=== PATIENT | male | born 1965 | race African-American/Black ===

== ENCOUNTER 2017-08-22 04:59 | Day surgery (SDC) | payer OTHER ==
[~2017-08-22] VITALS: Ht 177.8 cm; Wt 111.5 kg
--- NOTE | ~2017-08-22 | HP ---
PATIENT: LUC SINGH MEDICAL RECORD: [id number] ACCOUNT: [id number] LOCATION:[address] : 67 ADMISSION DATE: 08/22/17 HISTORY AND PHYSICAL EXAMINATION CHIEF COMPLAINT: "I am here for a graft." [facility]. He has had a failed fistula procedure in the past. He is here for left upper extremity arteriovenous graft versus fistula. The risks, possible complications, and alternatives to the procedure were explained to the patient. A written history and physical is on the chart. TRANSINT:[id number] Voice Confirmation ID: [id number] DOCUMENT ID: [id number] LOLITA BARGER MD CC: [id number] DICTATION DATE: 08/22/17 1213 HOT TAR ROOFER HELPER: 08/22/17 1237 REG [facility] [address] [place] [address]
--- NOTE | ~2017-08-22 | OP ---
PATIENT NAME: LUC SINGH MEDICAL RECORD: [id number] :67 LOCATION:D.M2 D.2140 ADMISSION DATE: SURGEON: LOLITA BARGER MD DATE OF OPERATION: 08/22/2017 PREOPERATIVE DIAGNOSIS: End-stage renal disease without chronic access for hemodialysis. POSTOPERATIVE DIAGNOSIS: End-stage renal disease without chronic access for hemodialysis. PROCEDURE: Placement of a 6 mm PTFE graft from the left brachial artery to the left cephalic vein. SURGEON: Lolita Barger MD WHIPPER BEATER: None. BLOOD LOSS: 300 cc. ANESTHESIA: General. COMPLICATIONS: None. The risks, possible complications and alternatives to procedure were explained to the patient. He elects to proceed. OPERATIVE COURSE: The patient was conveyed to the operating room electively on 08/22/2017. General anesthesia was induced by the anesthesia staff. The left upper extremity was sterilely prepped and draped and abducted at 90 degrees to the patient's trunk. I interrogated the left upper extremity with hand-held ultrasound. It revealed a fairly generous cephalic vein in the mid arm as well as in the upper arm; however, a minute cephalic vein in the distal arm just above the cubital fossa. An axial incision was accomplished on the medial aspect of the arm. I dissected down to the brachial artery. Some venous structures were ligated doubly and divided between ligatures. There were paired brachial veins. One of these veins was ligated doubly and divided between the ligatures. This was to allow for easier access to the brachial artery, which was encircled with vessel loops. An axial incision was then accomplished over the cephalic vein. I dissected down to cephalic vein, which was encircled with vessel loops. I then created a tunnel between the 2 incisions. I tunneled a 6 mm PTFE graft and ensured that there was no kinking or twisting of the graft during the tunneling process. Control was obtained with vessel loops on the artery. This was after intravenous heparin had been given. An axial arteriotomy was accomplished. I then punched out some ovals in the artery with an aortic punch. A side-to-end arterial to graft anastomosis was then fashioned with a running 6-0 Prolene. I then flushed out through the graft. Rosalina was added to the anastomosis for additional hemostasis. I then bevelled the venous end of the graft. An axial venotomy was OPERATIVE REPORT [id number] LUC SINGH. An end-to-side graft to venous anastomosis was then fashioned with a running 6-0 Prolene. I then released control on the artery and on the vein. There was a good thrill within the vein. We then began to close both incisions. The closure consisted of interrupted 3-0 Vicryl for the deep dermis as well as running intracuticular 3-0 Vicryl for the skin. At this time, I could not Doppler any signal through the graft. I opened up the incision over the cephalic vein. I gained control on the graft as well as the vessels with vascular clamps. I then performed a transverse graftotomy. I was planning to perform a catheter thrombectomy. There was a prompt flow of blood out of the graft. This was under pressure. I really cannot determine why this could not be heard by the hand held Doppler. I did perform one pass with a #4 Neela catheter and there was no clotted blood. I then regained control with vascular clamps. The graftotomy was closed with a single horizontal mattress 6-0 Prolene suture. The skin at this site was then closed with a running intracuticular 3-0 Vicryl. Sterile dressings were applied. The patient was then extubated and conveyed to post-anesthesia care unit where he was in stable condition. He will be kept in the hospital overnight to observe for bleeding. TRANSINT:[id number] Voice Confirmation ID: [id number] DOCUMENT ID: [id number] LOLITA BARGER MD CC: [id number] DICTATION DATE: 08/22/17 1218 ANAESTHESIOLOGIST: 08/22/17 1241 REG [address] [address] [id number] [place] [address]
[2017-08-22] MEDS ORDERED: ZYLOPRIM100 MG PO (05:19)
[2017-08-22] MEDS ORDERED: NORVASC10 MG PO (05:19)
[2017-08-22] MEDS ORDERED: CATAPRES0.1 MG PO (05:22)
[2017-08-22] MEDS ORDERED: CYMBALTA20 MG PO (05:22)
[2017-08-22] MEDS ORDERED: FUROSEMIDE40 MG PO (05:23)
[2017-08-22] MEDS ORDERED: PROSCAR5 MG PO (05:23)
[2017-08-22] MEDS ORDERED: NEURONTIN600 MG PO (05:23)
[2017-08-22] MEDS ORDERED: HUMULIN 70100 UNIT/1 SC (05:24)
[2017-08-22] MEDS ORDERED: PRAVACHOL20 MG (05:25)
[2017-08-22] MEDS ORDERED: FLOMAX0.4 MG PO (05:25)
[2017-08-22] MEDS ORDERED: HUMULIN R100 U/ML SC (05:25)
[2017-08-22 06:57] VITALS: BP 152/77; BMI 34.5
[2017-08-22 07:27] LABS: ALBUMIN 3.5 g/dL (3.4-5.0); ANION GAP 16.3 mmol/L (8-16); BILIRUBIN - TOTAL 0.33 mg/dL (0.2-1.3); CALCIUM 9.2 mg/dL (8.5-10.1); CARBON DIOXIDE 23.9 mmol/L (21.0-32.0); POTASSIUM - SERUM 4.2 mmol/L (3.5-5.1)
[2017-08-22 08:43] LABS: BASOPHILS 0.2 % (0-2); EOSINOPHILS 7.9 % (0-7); HEMATOCRIT 33.7 % (42.0-54.0); HEMOGLOBIN 11.6 g/dL (13.5-17.5); IMMATURE GRANULOCYTES 0.5 % (0-5); LYMPHOCYTES 20.7 % (15-50); MCH 28.8 pg (26.0-34.0); MCHC 34.4 g/dL (31.0-37.0); MCV 83.6 fL (80.0-100.0); MEAN PLATELET VOLUME 10.4 fL (7.4-10.4); MONOCYTES 5.5 % (2-11); NEUTROPHILS 65.2 % (40-80); PLATELET COUNT 174 10x3/uL (130-400); RBC 4.03 10x6/uL (4.20-6.10); RDW 15.2 % (11.5-14.5); WBC 8.2 10x3/uL (4.8-10.8)
[2017-08-22 12:12] VITALS: BP 156/79; BMI 30.1
[2017-08-22 15:07] VITALS: BP 160/72
[2017-08-22 16:01] VITALS: Ht 177.8 cm; Wt 111.5 kg
[2017-08-22 20:54] VITALS: BP 139/87
[2017-08-23 00:53] VITALS: BP 165/84
[2017-08-23 04:47] VITALS: BP 152/85
[2017-08-23 08:10] VITALS: BP 168/78
[2017-08-23 15:34] VITALS: BP 173/69
[2017-08-23 19:00] VITALS: BP 156/77
[2017-08-24] VITALS: BP 172/85
[2017-08-24 04:00] VITALS: BP 142/73
[2017-08-24 08:24] VITALS: BP 159/81
[2017-08-24 11:36] VITALS: BP 152/80
== END 2017-08-24 14:20 | disposition home or self-care (01) ==
LOC: D.SDCHOLD 04:59 → D.OPS 04:59 → D.M2 11:54 → D.OPS 08-24 14:20
PROVIDERS: Anesthesiology
DX: E11.22 Type 2 diabetes mellitus with diabetic chronic kidney disease (principal); I12.0 Hypertensive chronic kidney disease with stage 5 chronic kidney disease or end stage renal disease; Z87.891 Personal history of nicotine dependence; Z99.2 Dependence on renal dialysis; Z79.4 Long term (current) use of insulin; Z79.899 Other long term (current) drug therapy; Z88.6 Allergy status to analgesic agent; Z01.812 Encounter for preprocedural laboratory examination

== ENCOUNTER 2018-12-16 15:35 | Inpatient (IN) | payer MEDICAID ==
[~2018-12-16] VITALS: Ht 182.9 cm; Wt 100.1 kg
[2018-12-16] VITALS (19 sets, daily range): BP systolic 84–218; BP diastolic 32–158
[~2018-12-16 15:35] MED LIST: CATAPRES0.1 MG PO; CYMBALTA20 MG PO; FLOMAX0.4 MG PO; FUROSEMIDE40 MG PO; HUMULIN 70100 UNIT/1 SC; HUMULIN R100 U/ML SC; NEURONTIN600 MG PO; NORVASC10 MG PO; PRAVACHOL20 MG; PROSCAR5 MG PO; ZYLOPRIM100 MG PO
--- NOTE | 2018-12-16 16:21 | NUR ---
FSBS= 383 MG/DL DR WILSON NOTIFIED
--- NOTE | 2018-12-16 16:36 | NUR ---
NO RESPONSE AFTER RAMAZICON, DR WILSON NOTIFIED PREPARE FOR INTUBATION
[2018-12-16 16:38] LABS: APTT 28.5 SECONDS (22.8-39.4); INR 1.14 (0.85-1.17); PROTIME 14.1 SECONDS (11.6-15.0)
[2018-12-16 16:41] LABS: BASOPHILS 0.1 % (0-2); EOSINOPHILS 0.1 % (0-7); HEMATOCRIT 38.8 % (42.0-54.0); HEMOGLOBIN 14.1 g/dL (13.5-17.5); IMMATURE GRANULOCYTES 0.2 % (0-5); LYMPHOCYTES 7.8 % (15-50); MCH 29.7 pg (26.0-34.0); MCHC 36.3 g/dL (31.0-37.0); MCV 81.9 fL (80.0-100.0); MEAN PLATELET VOLUME 10.9 fL (7.4-10.4); MONOCYTES 2.7 % (2-11); NEUTROPHILS 89.1 % (40-80); PLATELET COUNT 134 10x3/uL (130-400); RBC 4.74 10x6/uL (4.20-6.10); RDW 14.7 % (11.5-14.5); WBC 8.2 10x3/uL (4.8-10.8)
--- NOTE | 2018-12-16 16:45 | NUR ---
RT AT DRAWING ABG'S
--- NOTE | 2018-12-16 16:49 | NUR ---
DR WILSON AT [facility] FOR INTUBATION. 1648: ETOMIDATE 20 MG AND SUCCINYCHOLINE 100MG IVP 1656: REPEAT MEDS ETOMIDATE 20MG AND SUCC 100MG IVP 1658: INTUBATED WITH 7.5 FR 29 @ THE LIP. POSITIVE ETCO2 COLOR CHANGE AND AUSCULTATION. VSS VENT SETTINGS: TV 500 PEEP 5 FIO2 100%
[2018-12-16 16:58] LABS: ALBUMIN 3.5 g/dL (3.4-5.0); ALKALINE PHOSPHATASE 104 U/L (46-116); ALT (SGPT) 15 U/L (10-68); BILIRUBIN - TOTAL 0.36 mg/dL (0.2-1.3); CALC OSMOLALITY 302 mosm/kg (275-300); CALCIUM 8.5 mg/dL (8.5-10.1); CARBON DIOXIDE 20.1 mmol/L (21.0-32.0); CHLORIDE - SERUM 100 mmol/L (98-107); CKMB 1.6 U/L (0.0-3.6); CREATINE KINASE 164 UL (21-232); CREATININE - SERUM 13.1 mg/dL (0.6-1.3); MAGNESIUM - SERUM 2.4 mg/dL (1.8-2.4); POTASSIUM - SERUM 5.8 mmol/L (3.5-5.1); PROTEIN - SERUM 7.4 g/dL (6.4-8.2); SODIUM 135 mmol/L (136-145); THYROID STIMULATING HORMONE 1.66 uIU/mL (0.36-3.74); TROPONIN-I 0.017 ng/mL (0.000-0.060); UREA NITROGEN 55 mg/dL (7-18); eGFR NON AFRICAN AMERICAN 4 mL/min (90-120)
[2018-12-16 17:05] LABS: GLUCOSE 430 mg/dL (74-106)
--- NOTE | 2018-12-16 17:30 | NUR ---
propofol gtt increased to 20 mcg
--- NOTE | 2018-12-16 17:39 | NUR ---
BP ELEVATED NIPRIDE GTT INITIATED @ 10ML/HR
--- NOTE | 2018-12-16 17:50 | NUR ---
BP 84/[address] KATIE BLACKWELLFIED
--- NOTE | 2018-12-16 18:01 | NUR ---
BP 137/77 NIPRIDE GTT STOPPED
--- NOTE | 2018-12-16 18:07 | MORECARE ---
CASE MANAGEMENT DISCHARGE SUMMARY PATIENT: LUC SINGH UNIT: [id number] ADM DATE: 12/16/18 AGE: 53 : 67 SEX: M ROOM/BED: D.2303 AUTHOR: HARPER CORMIER PHYSICIAN: REFERRING PHYSICIAN: HOWARD VELEZ MD DATE OF SERVICE: 12/16/18 Discharge Plan Patient Name: LUC SINGH [facility] : 1965 Planned Disposition: Anticipated Discharge Date: Discharge Date: Expected LOS: Initial Reviewer: [email or web address] Initial Review Date: 12/16/2018 Generated: 12/16/18 7:06 pm Patient Name: LUC SINGH Page 43979 at 1807 All edits/amendments must be made on the electronic document DICTATION DATE: 12/16/181805 CARDBOARD CUTTER: ABIMAEL 12/16/181805 RPT#: [id number] DC DATE: STATUS: ADM IN [facility] [address] [place] [address] END OF REPORT
--- NOTE | 2018-12-16 18:13 | NUR ---
NGT ADVANCED 2-[address] WILSON
--- NOTE | 2018-12-16 18:26 | NUR ---
REPORT CALLED TO DEBORA GUTIERREZ BY SBAR FORMAT
--- NOTE | 2018-12-16 18:34 | NUR ---
NIPRIDE GTT RE STARTED @ 0.25 MCG/KG/MIN (3.8 ML/HR)
--- NOTE | 2018-12-16 18:45 | NUR ---
TRANSPORTED TO ICU#2303 VIA STRETCHER WITH RT. PROPOFOL GTT INFUSING UPON TX TO UNIT. CONDITION STABLE.
--- NOTE | 2018-12-16 19:10 | NUR ---
PT RECEIVED FROM ER VIA STRETCHER, TRANSFERRED TO ICU BED. WITH ER STAFF AND RT. PT CONNECTED TO VENT AND MONITOR. SEDATED. SOFT WRIST RESTRAINS TO BILATERAL WRIST DUE TO PULLING AT LINES AND TUBES WITH ORDERS RECEIVED. WILL CONTINUE TO OBSERVE.
--- NOTE | 2018-12-16 19:10 | NUR ---
PT RECEIVED FROM ER ON STRETCHER WITH NURSE AND RT. PT TRANSFERRED TO ICU BED AND CONNECTED TO VENT AND MONITOR. PT WITH BEARD WITH CLEAR URINE. ORDERS RECEIVED FOR ABG AND DIPROVAN. WILL CONTINUE TO OBSERVE.
[2018-12-16 21:27] LABS: ANION GAP 29.9 mmol/L (8-16); CALCIUM 8.3 mg/dL (8.5-10.1); CREATININE - SERUM 13.6 mg/dL (0.6-1.3); POTASSIUM - SERUM 5.7 mmol/L (3.5-5.1)
[2018-12-16 21:38] LABS: CARBON DIOXIDE 13.8 mmol/L (21.0-32.0)
--- NOTE | 2018-12-16 21:50 | NUR ---
PT TO IMAGING FOR HEAD CT WITH NURSE, RT, AND E LEARNING DESIGNER. TRANSFERRED TO CT, RT USES AMBU BAG DURING PROCEDURE WITH PRECAUTIONS TAKEN. PT MOVED SOME AT FIRST AND CALMED DOWN. TRANSFERRED BACK TO BED AND RETURNED TO ROOM. PT TOLERATED WELL. NO CONCERNS NOTE AT THIS TIME.
[2018-12-16 23:10] LABS: CKMB 2.9 U/L (0.0-3.6)
[2018-12-16 23:27] LABS: CREATINE KINASE 296 UL (21-232)
[2018-12-16 23:28] LABS: TROPONIN-I 0.138 ng/mL (0.000-0.060)
--- NOTE | 2018-12-16 23:45 | NUR ---
REASSESSMENT COMPLETED, SEE FLOW SHEET. TITRATING FROM SEDATION, SEE FLOW SHEET. WILL CONTINUE TO OBSERVE
[2018-12-17] VITALS (70 sets, daily range): BP systolic 92–212; BP diastolic 46–112; Ht 182.9 cm; Wt 100.1 kg
--- NOTE | 2018-12-17 01:25 | NUR ---
PT CONTINUES VENT NO SEDATION NOTED. VENT ON CPAP. TOLERATING WELL.
--- NOTE | 2018-12-17 01:30 | NUR ---
CONTINUES VENT, OFF SEDATION, ROUSES AT TIMES, ATTEMPTING TO PULL LINES/TUBES. DOES NOT OPEN EYES, OR FOLLOW COMMANDS. WILL CONTINUE TO OBSERVE.
--- NOTE | 2018-12-17 03:30 | NUR ---
REASSESSMENT COMPLETED, SEE FLOW SHEET. CONTINUES VENT WITHOUT SEDATION. NO RESPONSE TO STIMULI.
[2018-12-17 04:32] LABS: BASOPHILS 0.1 % (0-2); EOSINOPHILS 2.3 % (0-7); HEMATOCRIT 38.1 % (42.0-54.0); IMMATURE GRANULOCYTES 0.4 % (0-5); LYMPHOCYTES 10.9 % (15-50); MCH 29.5 pg (26.0-34.0); MCHC 36.7 g/dL (31.0-37.0); MCV 80.4 fL (80.0-100.0); MEAN PLATELET VOLUME 10.8 fL (7.4-10.4); MONOCYTES 6.8 % (2-11); NEUTROPHILS 79.5 % (40-80); PLATELET COUNT 145 10x3/uL (130-400); RBC 4.74 10x6/uL (4.20-6.10); RDW 14.6 % (11.5-14.5); WBC 7.3 10x3/uL (4.8-10.8)
[2018-12-17 05:08] LABS: ALBUMIN 3.3 g/dL (3.4-5.0); ALKALINE PHOSPHATASE 93 U/L (46-116); ALT (SGPT) 16 U/L (10-68); BILIRUBIN - TOTAL 0.38 mg/dL (0.2-1.3); CALC OSMOLALITY 309 mosm/kg (275-300); CALCIUM 8.7 mg/dL (8.5-10.1); CARBON DIOXIDE 24.4 mmol/L (21.0-32.0); CHLORIDE - SERUM 104 mmol/L (98-107); CKMB 2.7 U/L (0.0-3.6); CREATINE KINASE 335 UL (21-232); CREATININE - SERUM 14.1 mg/dL (0.6-1.3); GLUCOSE 175 mg/dL (74-106); MAGNESIUM - SERUM 2.4 mg/dL (1.8-2.4); PHOSPHOROUS 5.9 mg/dL (2.5-4.9); POTASSIUM - SERUM 3.9 mmol/L (3.5-5.1); PROTEIN - SERUM 6.6 g/dL (6.4-8.2); SODIUM 145 mmol/L (136-145); TROPONIN-I 0.153 ng/mL (0.000-0.060); UREA NITROGEN 61 mg/dL (7-18); eGFR NON AFRICAN AMERICAN 4 mL/min (90-120)
[2018-12-17] MEDS ORDERED: NEURONTIN 300300 MG PO (05:29)
[2018-12-17] MEDS ORDERED: ELIQUIS5 MG PO (05:39)
[2018-12-17] MEDS ORDERED: PHOSLO667 MG PO (05:42)
[2018-12-17] MEDS ORDERED: COLACE100 MG PO (05:44)
--- NOTE | 2018-12-17 06:36 | NUR ---
UNABLE TO COMPLETE SUICIDE ASSESSMENT DUE TO BEING INTUBATED.
--- NOTE | 2018-12-17 07:48 | NUR ---
NO RESPONSE AT ALL TO STERNAL RUB. ETT SECURE TO VENT BILATERAL LUNG SOUNDS EQUAL NO DISTRESS. LEFT SUBCLAVIAN TRIALYSIS CATH CLAMPED. DRESSING DRY AND INTACT. NG TO LOW INTERMITTENT SUCTION. BEARD CATH WITHOUT URINE IN BAG. MONITOR SR. NO DISTRESS.
--- NOTE | 2018-12-17 07:58 | NUR ---
WHEN REPOSITIONING PATIENT HE BENT RIGHT KNEE AND MOVED BOTH ARMS. DID NOT OBEY EYES OR OBEY ANY COMMANDS. DID NOT GRIMACE TO STERNAL RUB
--- NOTE | 2018-12-17 10:00 | NUR ---
DIALYSIS NURSE SETTING UP FOR DIALYSIS. NO CHANGE IN PATIENT. NO SEDATION
--- NOTE | 2018-12-17 10:00 | NUR ---
DR. VELEZ HERE PATIENT WAKING UP MORE AND MOVING ALL EXTREMITITES LIFTING HEAD OFF BED, BUT NOT OPENING EYES
--- NOTE | 2018-12-17 10:13 | NUR ---
PATIENT UNRESPONSIVE UNABLE TO DO SRS. PATIENT ON VENTILATOR WILL REEVAL LATER
--- NOTE | 2018-12-17 10:20 | NUR ---
DIALYSIS NURSE HAVING PROBLEMS WITH TRIALYSIS CATH. ORDERED ACTIVASE TO BE GIVEN BY DIALYSIS NURSE
[2018-12-17 10:40] LABS: UDS - AMPHET NEGATIVE QUAL (NEGATIVE); UDS - BARB NEGATIVE QUAL (NEGATIVE); UDS - BENZO NEGATIVE QUAL (NEGATIVE); UDS - COCAINE NEGATIVE QUAL (NEGATIVE); UDS - OPIATE NEGATIVE QUAL (NEGATIVE); UDS - PCP NEGATIVE QUAL (NEGATIVE); UDS - THC NEGATIVE QUAL (NEGATIVE)
[2018-12-17 10:59] LABS: APPEARANCE HAZY (CLEAR); BACTERIA FEW /hpf (NONE SEEN); BILIRUBIN NEGATIVE (NEGATIVE); COLOR YELLOW (YELLOW); EPITHELIAL CELLS 0-5 /hpf (0-5); GLUCOSE 500 mg/dL (NEGATIVE); KETONE NEGATIVE (NEGATIVE); MUCUS <1+ /lpf (NONE SEEN); NITRITE NEGATIVE (NEGATIVE); PROTEIN 2+ mg/dL (NEGATIVE); RED CELLS - URINE 0-5 /hpf (0-5); SPECIFIC GRAVITY 1.015 (1.005-1.020); SPERMATOZOA RARE /hpf (NONE SEEN); UROBILINOGEN NORMAL (NORMAL)
[2018-12-17 11:05] LABS: CKMB 3.3 U/L (0.0-3.6); CREATINE KINASE 337 UL (21-232)
[2018-12-17 11:06] LABS: TROPONIN-I 0.109 ng/mL (0.000-0.060)
--- NOTE | 2018-12-17 11:45 | NUR ---
DR. COMBS HERE. DR. RIOJAS HERE. PATIENT IS WILD, MOVING ALL OVER THE BED, ARMS AND LEGS UP AND DOWN. REVIEWED CHART WITH DRS. DECIDED TO GO AHEAD AND SEDATE UNTIL AFTER DIALYSIS. ORDERS RECEIVED TO START DIPIRVAN. SEDATE UNTIL AFTER DIALYSIS PER DR. RIOJAS.
--- NOTE | 2018-12-17 13:00 | NUR ---
DIPRIVAN INCREASED UNTIL PATIENT CALM. BLOOD PRESSURE STABLE. DIALYSIS IN PROGRESS TOLERATING WELL.
--- NOTE | 2018-12-17 15:00 | NUR ---
DIALYSIS COMPLETE. DIPIRVAN OFF. PATIENT RESTING COMFORTABLY. NO DISTRESS. REPOSITIONED UP IN BED.
--- NOTE | 2018-12-17 16:00 | NUR ---
CARDEAN RESTARTED FOR BLOOD PRESSURE. MOVING ALL EXTREMITIES.
--- NOTE | 2018-12-17 16:30 | NUR ---
BITTING ON ETT, RESTLESS. MOVING ALL EXTREMITITES UP AN DOWN IN BED. DIPRIVAN RESTARTED AT 10 MCG KG MIN. CARDEAN TURNED OFF. DUE TO DIPRIVAN DROPPED HIS BLOOD PRESSURE EARLIER.
--- NOTE | 2018-12-17 18:00 | NUR ---
NO DISTRESS. NOT AGITATED AT THIS TIME.
--- NOTE | 2018-12-17 18:48 | NUR ---
RESTING COMFORTABLY NO DISTRESS. DIPRIVAN AT 20 MCG/KG/MIN. CARDEAN OFF. NS AT 10 ML. TOLERATING VENT AND ETT AT THIS TIME
--- NOTE | 2018-12-17 18:55 | MORECARE ---
CASE MANAGEMENT DISCHARGE SUMMARY PATIENT: LUC SINGH UNIT: [id number] ADM DATE: 12/16/18 AGE: 53 : 67 SEX: M ROOM/BED: D.2303 AUTHOR: HARPER CORMIER PHYSICIAN: REFERRING PHYSICIAN: HOWARD VELEZ MD DATE OF SERVICE: 12/17/18 Discharge Plan Patient Name: [facility]UC [facility]INGH [facility] [facility] 1965 Planned Disposition: Anticipated Discharge Date: Discharge Date: Expected LOS: Initial Reviewer: [email or web address] Initial Review Date: 12/16/2018 Generated: 12/17/18 7:55 pm Last DP export: 12/16/18 5:07 p Patient Name: LUC SINGH Page 88374 at 1855 All edits/amendments must be made on the electronic document DICTATION DATE: 12/17/181854 PHONE COUNSELOR: ABIMAEL 12/17/181854 RPT#: [id number] DC DATE: STATUS: ADM IN [facility] [address] [place] [address] END OF REPORT
--- NOTE | 2018-12-17 19:00 | NUR ---
REPORT REC'D, PT CARE ASSUMED. ASSESMENT COMPLETED PER FLOWSHEETS. PT SEDATED ON VENT AROUSES WTIH TACTILE STIMULATION. SR ON CM, CONT SEDATION PER ORDER TO KEEP PT CALM. GUARD REMAINS AT BEDSIDE. WILL CONT TO MONITOR.
--- NOTE | 2018-12-17 19:03 | MORECARE ---
CASE MANAGEMENT DISCHARGE SUMMARY PATIENT: LUC SINGH UNIT: [id number] ADM DATE: 12/16/18 AGE: 53 : 67 SEX: M ROOM/BED: D.2303 AUTHOR: HARPER CORMIER PHYSICIAN: REFERRING PHYSICIAN: HOWARD VELEZ MD DATE OF SERVICE: 12/17/18 Discharge Plan Patient Name: LUC SINGH Facility: [facility]:[place] : 1965 Planned Disposition: Anticipated Discharge Date: Discharge Date: Expected LOS: Initial Reviewer: [email or web address] Initial Review Date: 12/16/2018 Generated: 12/17/18 8:02 pm Comments DCP- Discharge Planning Updated by [email or web address]: Lidia Shirley on 12/17/18 5:[address] Patient Name: LUC SINGH Admission Status: ER Accout number: [id number] Admission Date: 12-16-2018 : 1965 Admission Diagnosis: Attending: HOWARD VELEZ Current LOS: 1 Anticipated DC Date: Planned Disposition: Primary Insurance: MEDICAID LONG-TERM PENDING Discharge Planning Comments: [facility]. CM will continue follow and assist as needed with discharge planning / needs. Account Information Clerk: Lidia Shirley Last DP export: 12/17/18 5:55 p Patient Name: LUC SINGH Page 84957 at 1903 All edits/amendments must be made on the electronic document DICTATION DATE: 12/17/181901 DYER AND WASHER: ABIMAEL 12/17/181901 RPT#: [id number] DC DATE: STATUS: ADM IN [facility] [address] [place] [address] END OF REPORT
--- NOTE | 2018-12-17 21:00 | NUR ---
PT HONKING THE VENT, RESTLESS, SEDATION INCREASED TO KEEP PT SYNCRONIZE THE VENT. WILL CONT TO MONITOR.
--- NOTE | 2018-12-17 23:00 | NUR ---
REASSESMENT COMPLETED. SEE FLOWSHEETS FOR ALL FINDINGS. PT SEDATED ON VENT, NO ACUTE CHANGES NOTED. VSS.
[2018-12-18] VITALS (24 sets, daily range): BP systolic 93–188; BP diastolic 62–111
--- NOTE | 2018-12-18 01:00 | NUR ---
PT SEDATED ON VENT WITHOUT DISTRESS. VSS.
--- NOTE | 2018-12-18 03:00 | NUR ---
BEDBATH GIVEN, LINEN AND GOWN CHANGED, SKIN CARE DONE. MOUTH CARE PER VAP DONE, REPOSITIONED FOR COMFORT. HOB UP. SIDE RAILS UP. REASSESSMENT DONE PER FLOWSHEETS. NO ACUTE CHANGES NOTED. VSS. CPOC.
[2018-12-18 04:23] LABS: BASOPHILS 0.4 % (0-2); EOSINOPHILS 2.9 % (0-7); HEMOGLOBIN 15.2 g/dL (13.5-17.5); IMMATURE GRANULOCYTES 0.2 % (0-5); LYMPHOCYTES 24.2 % (15-50); MCH 30.1 pg (26.0-34.0); MCHC 37.1 g/dL (31.0-37.0); MCV 81.2 fL (80.0-100.0); MEAN PLATELET VOLUME 10.1 fL (7.4-10.4); MONOCYTES 6.3 % (2-11); PLATELET COUNT 173 10x3/uL (130-400); RBC 5.05 10x6/uL (4.20-6.10); RDW 14.9 % (11.5-14.5); WBC 8.3 10x3/uL (4.8-10.8)
--- NOTE | 2018-12-18 04:30 | NUR ---
I&O COMPLETED PER CHART WITHOUT DIFFIC.
[2018-12-18 04:39] LABS: ALBUMIN 3.6 g/dL (3.4-5.0); ANION GAP 21.4 mmol/L (8-16); BILIRUBIN - TOTAL 0.48 mg/dL (0.2-1.3); CALCIUM 9.2 mg/dL (8.5-10.1); CREATININE - SERUM 12.6 mg/dL (0.6-1.3); MAGNESIUM - SERUM 2.4 mg/dL (1.8-2.4); POTASSIUM - SERUM 4.4 mmol/L (3.5-5.1)
[2018-12-18 04:40] LABS: PHOSPHOROUS 8.7 mg/dL (2.5-4.9); PROTEIN - SERUM 8.3 g/dL (6.4-8.2)
--- NOTE | 2018-12-18 07:20 | NUR ---
REPORT RECEIVED. PT ON VENT. SETTINGS PER RT. CPAP TRIALS STARTING NOW. PROPOFOL DECREASED BY HALF (35MCG TO 17.5MCG). PT IS A RESERVE LEFT ARM. PT HAS A BEARD AND IS IN RESTRAINTS. PT HAS NGT TO LEFT NARE ON LIS. VSS. WILL CONTINUE TO MONITOR.
--- NOTE | 2018-12-18 07:43 | NUR ---
CPAP TRIAL STOPPED D/T PT BREATHING AT A RATE OF 50 RESP/MIN. PROPOFOL TURNED BACK UP TO 35MCG/HR.
--- NOTE | 2018-12-18 08:45 | NUR ---
PROPOFOL TURNED OFF PER DR KOCH REQUEST. TRYING CPAP TRIALS AGAIN. WILL ATTEMPT TO EXTUBATE TODAY.
--- NOTE | 2018-12-18 09:47 | EC ---
PATIENT:LUC SINGH DATE OF SERVICE: 12/16/18 SEX: M MEDICAL RECORD: [id number] DATE OF : 67 LOCATION:D.ICU D.230 AGE OF PATIENT: 53 ADMISSION DATE: 12/16/18 REFERRING PHYSICIAN: INTERPRETING PHYSICIAN: WILIAM PRINCE MD ECHOCARDIOGRAM REPORT ECHO CHARGES 4 ECHO COMPLETE Date: 12/17/18 CLINICAL DIAGNOSIS: HTN/ESRD/T-WAVE CHANGES ECHOCARDIOGRAPHIC MEASUREMENTS (adult normal given) AC root (d.<3.7cm) 3.3 cm LV Septum d (<1.2 cm> 1.4 cm Valve Excursion 2.0 cm LV Septum (systole) 1.9 cm Left Atria (s.<4.0cm> 3.1 cm LVPW d(<1.2cm) 1.3 cm RV (d.<2.3cm) 2.1 cm LVPW (sytole) 1.8 cm LV diastole(<5.6CM) 2.9 cm MV E-F(>70mm/sec) cm LV systole 1.9 cm LVOT Diameter 2.2 cm MV exc.(>10mm) cm Est.ejection fraction (50-75%) % DOPPLER: LVIT cm/sec A 45.0 cm/sec E 28.0 cm/sec LA cm/sec RVSP mmHg LVOT 68.0 cm/sec AOP1/2T m/s Asc. Ao 84.0 cm/sec RVOT 54.0 cm/sec RA cm/sec PA 64.0 cm/sec AV Gradient Peak 2.8 mmHg AV Mean 1.5 mmHg AV Area 4.4 cm MV Gradient Peak 1.3 mmHg MV Mean 0.44 mmHg MV Area cm COMMENTS: Network Infrastructure Architect: 1 RIAZ ARANAOE Medical Billing Supervisor: 3 Dr. Lara TAPE# PACS Pericardial Effusion N DATE OF SERVICE: Adequate 2-D echo, color-flow and spectral Doppler, and M-mode. LVH is present. LV internal dimensions are normal. LV is globally hypokinetic with reduced EF. Estimated EF is 30% to 35%. Aortic valve sclerosis without stenosis by Doppler interrogation. Left atrium is normal at 3.1 cm. Mitral valve shows no prolapse. Mild MR. Right-sided chambers are grossly normal. Trace TR. ECHOCARDIOGRAM REPORT [id number] LUC SINGH TRANSINT:[id number] Voice Confirmation ID: [id number] DOCUMENT ID: [id number] WILIAM PRINCE MD at 0947 CC: [id number] DICTATION DATE: 12/17/18 150 HOTEL SERVICE SUPERVISOR: 12/17/18 1540 ADM IN [facility] [address] [place] [address]
[2018-12-18 10:15] LABS: HEPATITIS C ANTIBODY <0.1 S/CO RAT (0.0-0.9)
--- NOTE | 2018-12-18 10:20 | NUR ---
PT IS VISIBLY AGITATED. SPOKE WITH RT ABOUT WHEN THE PLAN WAS TO EXTUBATE PT. SHE IS CURRENTLY TRYING TO GET IN TOUCH WITH DR RIOJAS FOR ORDERS. WILL MONITOR.
--- NOTE | 2018-12-18 11:30 | NUR ---
PT EXTUBATED. DOES NOT FOLLOW COMMANDS. PUT ON O2 AT 2L. O2 SAT CURRENTLY AT 100%. WILL CONTINUE TO MONITOR. GUARD AT BEDSIDE.
--- NOTE | 2018-12-18 13:25 | NUR ---
NGT REMOVED. PT FACE CLEANED UP. REPOSITIONED IN BED.
--- NOTE | 2018-12-18 15:30 | NUR ---
PT RESTING QUIETLY. GUARD AT BS. WILL CONTINUE TO MONITOR.
--- NOTE | 2018-12-18 18:15 | NUR ---
BP STEADILY INCREASED. GOT LOPRESSOR AND VASOTEC ORDERED.
--- NOTE | 2018-12-18 19:30 | NUR ---
SHIFT ASSESSMENT PERFORMED SEE FLOWSHEET, PT RESPONDS TO VERBAL STIMULI EYES OPEN TO SPEECH, DOES NOT FOLLOW COMMANDS, CORNEAL REFLEX INTACT. PERRLA - GUARD AT BEDSIDE DIALYSIS NURSE SETTING UP AT BEDSIDE, SYSTOLIC BP INCREASED AT THIS TIME. CPOC
--- NOTE | 2018-12-18 21:22 | NUR ---
HOLD PO MEDS FOR THIS PM PER SHINE VERBAL PHONE ORDER
--- NOTE | 2018-12-18 21:25 | NUR ---
DR. RIOJAS ON PHONE UPDATE GIVEN AND ALL QUESTIONS ANSWERED, NO PAIN OR SEDATION MEDICATIONS ARE TO BE GIVEN AT THIS TIME. VERBAL ORDER GIVEN TO USE OVERNIGHT IF NEEDED. 25MCG/HR CONTINOUS PRN VENTILATOR COMPLIANCE.
--- NOTE | 2018-12-18 22:19 | NUR ---
DIALYSIS COMPLETE, VSS SINUS TACH NOTED, SLIGHT AGITATION FROM PATIENT WILL CONTINUE TO MONITOR
--- NOTE | 2018-12-18 23:10 | NUR ---
REASSESSMENT COMPLETED VSS - CPOC PATIENT STILL NOT FOLLOWING COMMANDS, OPENS EYES AND GRUNTS IN RESPONSE TO VERBAL QUESTIONS, INCOMPREHENSIBLE SOUNDS, GUARD AT BEDSIDE CPOC
[2018-12-19] VITALS (25 sets, daily range): BP systolic 94–175; BP diastolic 58–104
--- NOTE | 2018-12-19 00:42 | NUR ---
EVEN RISE AND FALL OF CHEST, CSS, CPOC
--- NOTE | 2018-12-19 02:33 | NUR ---
REASSESSMENT COMPLETED SEE FLOWSHEET - PATIENT 2L NC OFF AT THIS TIME, THIS NURSE REQUESTED PATIENT TO RAISE HEAD AND PATIENT COMPLIED - NC REAPPLIED WITH 02 SATURATION INCREASE TO 97% - BP SLIGHTLY ELEVATED AT THIS TIME. WILL MONITOR CLOSELY. CPOC
--- NOTE | 2018-12-19 04:05 | NUR ---
PT MOANING LOUDLY, CURLED IN POSITION CRYING, RAISES HEAD TO COMMAND BUT WILL NOT SQUEEZE HANDS OR FOLLOW ANY OTHER INSTRUCTION, UNABLE TO COMMUNICATE NEEDS. REPOSITIONED PATIENT BP CUFF FOR ACCURATE READING, UNTANGLED LINES AND ASSISTED REPOSITION FOR COMFORT. PATIENT CALM AT THIS TIME
[2018-12-19 05:06] LABS: BASOPHILS 0.3 % (0-2); EOSINOPHILS 1.8 % (0-7); HEMATOCRIT 43.1 % (42.0-54.0); HEMOGLOBIN 15.8 g/dL (13.5-17.5); IMMATURE GRANULOCYTES 0.4 % (0-5); LYMPHOCYTES 17.3 % (15-50); MCH 29.9 pg (26.0-34.0); MCHC 36.7 g/dL (31.0-37.0); MCV 81.6 fL (80.0-100.0); MEAN PLATELET VOLUME 10.5 fL (7.4-10.4); MONOCYTES 6.7 % (2-11); NEUTROPHILS 73.5 % (40-80); PLATELET COUNT 192 10x3/uL (130-400); RBC 5.28 10x6/uL (4.20-6.10); RDW 14.9 % (11.5-14.5); WBC 9.8 10x3/uL (4.8-10.8)
[2018-12-19 05:30] LABS: ALBUMIN 3.8 g/dL (3.4-5.0); ANION GAP 25.2 mmol/L (8-16); BILIRUBIN - TOTAL 0.68 mg/dL (0.2-1.3); CALCIUM 9.6 mg/dL (8.5-10.1); CARBON DIOXIDE 20.1 mmol/L (21.0-32.0); CREATININE - SERUM 13.1 mg/dL (0.6-1.3); MAGNESIUM - SERUM 2.4 mg/dL (1.8-2.4); POTASSIUM - SERUM 4.3 mmol/L (3.5-5.1); PROTEIN - SERUM 8.7 g/dL (6.4-8.2)
[2018-12-19 05:32] LABS: PHOSPHOROUS 9.1 mg/dL (2.5-4.9)
--- NOTE | 2018-12-19 07:15 | NUR ---
REC'D RT SIDE. OPENS EYES UPON ENTRY. ASSESSED. MOANS ALOUD BUT WILL NOT ANSWER QUESTIONS. GUARD AT BEDSIDE AND RT ANKLE CUFFED TO BED. VSS.
--- NOTE | 2018-12-19 07:45 | NUR ---
NEPHROLOGY ELECTRONICS DETAIL DRAFTSPERSON IN- NO NEW ORDERS.
--- NOTE | 2018-12-19 09:00 | NUR ---
DR RIOJAS ROUNDS- NO NEW ORDERS.
--- NOTE | 2018-12-19 11:10 | NUR ---
REASSESSED W/O CHANGE, DR RIOJAS IN AGAIN- SUGGESTS PT TRANSFER TO A FACILITY THAT HAS NEUROLOGY.
--- NOTE | 2018-12-19 12:30 | NUR ---
DR VELEZ ROUNDS- ORDERS REC'D.
--- NOTE | 2018-12-19 14:50 | NUR ---
TO MRI VIA W/C.
--- NOTE | 2018-12-19 15:35 | NUR ---
BECAME VERY UPSETDURING MRI- PULLING AT HEAD PIECE AGAINST VELCRO STRAPS REPEATEDLY SAYING "GET OUT' TO INDICATE THAT HE WANTS TO GET POUT OF THE MRI. DR VELEZ NOTIFIED AND NOE GIVEN IM @ [id number].
--- NOTE | 2018-12-19 15:45 | NUR ---
REASSESSED. SEDATED BUT WILL FOLLOW COMMANDS.
--- NOTE | 2018-12-19 17:00 | NUR ---
SEDATED- HARD TO AWAKEN. VSS.
--- NOTE | 2018-12-19 18:37 | NUR ---
OPENS EYES TO PAINFUL, WD ALL EXTREMITIES.
--- NOTE | 2018-12-19 19:15 | NUR ---
RECEIVED PATIENT CARE SHIFT ASSESSMENT COMPLETED SEE FLOWSHEET. GUARD AT BEDSIDE - PT UNRESPONSIVE TO SPEECH AND STERNAL RUB - OPEN EYES SLIGHTLY AND STATED "OW" WHEN INSTRUMENT PRESSED FIRMLY FLAT AGAINST FINGER NAIL, NO OTHER RESPONSE. VSS - BP WITHIN PARAMAETERS, PT ON 2L SP02 97% - CPOC
--- NOTE | 2018-12-19 21:30 | NUR ---
PT RECEIVED IV LASIXS PER ORDER - HELD PO MEDS DUE TO SWALLOW INTOLERANCE, INSULIN HELD PER SLIDING SCALE. PT OPENS EYES TO SPEECH, NOT FOLLOWING COMMANDS, VSS CPOC
--- NOTE | 2018-12-19 22:23 | NUR ---
NEURO STATUS ASSESSED SEE FLOWSHEET
--- NOTE | 2018-12-19 23:38 | NUR ---
NEURO STATUS ASSESSED SEE FLOWSHEET, REASSESSMENT COMPLETED SEE FLOWSHEET, GUARD AT BEDSIDE, NO APPARENT DISTRESS - VSS CPOC
[2018-12-20] VITALS (18 sets, daily range): BP systolic 98–136; BP diastolic 60–98
--- NOTE | 2018-12-20 01:53 | NUR ---
PT RECEIVED FULL BED BATH AND LINEN CHANGE, CVL DRESSING CHANGED PER PROTOCOL. SCDS REAPPLIED, STAT LOCK IN PLACE BEARD CARE COMPLETED. VSS GUARD AT BEDSIDE HOLD VASOTECH AND INSULIN PER ORDER. CPOC
--- NOTE | 2018-12-20 03:30 | NUR ---
REASSESSMENT COMPLETED SEE FLOWSHEET - NO APPARENT SIGNS OF DISTRESS - GUARD AT BEDSIDE, CALL LIGHT IN REACH CPOC
[2018-12-20 04:11] LABS: BASOPHILS 0.3 % (0-2); EOSINOPHILS 3.3 % (0-7); HEMATOCRIT 42.2 % (42.0-54.0); HEMOGLOBIN 15.5 g/dL (13.5-17.5); IMMATURE GRANULOCYTES 0.4 % (0-5); LYMPHOCYTES 21.3 % (15-50); MCH 29.6 pg (26.0-34.0); MCHC 36.7 g/dL (31.0-37.0); MCV 80.7 fL (80.0-100.0); MEAN PLATELET VOLUME 10.4 fL (7.4-10.4); NEUTROPHILS 68.7 % (40-80); PLATELET COUNT 209 10x3/uL (130-400); RBC 5.23 10x6/uL (4.20-6.10); WBC 9.7 10x3/uL (4.8-10.8)
[2018-12-20 04:30] LABS: ALBUMIN 3.6 g/dL (3.4-5.0); ANION GAP 26.6 mmol/L (8-16); BILIRUBIN - TOTAL 0.64 mg/dL (0.2-1.3); CALCIUM 9.4 mg/dL (8.5-10.1); CARBON DIOXIDE 19.4 mmol/L (21.0-32.0); CREATININE - SERUM 15.8 mg/dL (0.6-1.3); MAGNESIUM - SERUM 2.6 mg/dL (1.8-2.4); PROTEIN - SERUM 8.6 g/dL (6.4-8.2)
--- NOTE | 2018-12-20 10:00 | NUR ---
ASSUMED CARE FROM Francesco SIGALA RN. EYES CLOSED/ RESP UNLABORED.
--- NOTE | 2018-12-20 11:30 | NUR ---
ASSESSED. OPENS EYES, FOLLOWS COMMANDS W/ALL EXTREMITIES. ABLE TO FEED SELF!
--- NOTE | 2018-12-20 12:30 | NUR ---
DR VELEZ ROUNDS- ORDERS REC'D.
--- NOTE | 2018-12-20 13:30 | NUR ---
LARGE LOOSE BROWN STOOL PER BEDPAN- STOOL FOR C-DIFF OBTAINED.
--- NOTE | 2018-12-20 15:30 | NUR ---
REASSESSED- HAS BEEN MUCH MORE ALERT THIS AFTERNOON.
--- NOTE | 2018-12-20 17:30 | NUR ---
ATTEMPTS TO GET OUT OF BED UNASSISTED D/T INCONT SMALL LOOSE BROWN STOOL. INSTRUCTED TO NOT GET OUT OF BED W/O HELP. LINENS CHANGED.
--- NOTE | 2018-12-20 19:10 | NUR ---
SHIFT ASSESSMENT COMPLETED SEE FLOWSHEET
--- NOTE | 2018-12-20 19:58 | NUR ---
PT REQUESTED SOMETHING TO EAT, PROVIDED WITH TURKEY TRAY - AND BEVERAGE AT THIS TIME VSS CPOC
--- NOTE | 2018-12-20 22:30 | NUR ---
PT AAO X3 - NO APPARANT DISTRESS CPOC
[2018-12-21 03:00] VITALS: BP 116/67
--- NOTE | 2018-12-21 03:02 | NUR ---
PATIENT REQUESTING TO CALL HIS MAMA - AGITATED REPEATING "IM NOT ON RETSTRICTION, LET ME CALL MY MAMA" GUARD AT BEDSIDE, VSS CPOC
--- NOTE | 2018-12-21 03:39 | NUR ---
PT RESTING COMFORTABLY EYES CLOSED, EVEN RISE AND FALL OF CHEST GUARD AT BEDSIDE WILL CONTINUE TO MONITOR
[2018-12-21 04:54] LABS: BASOPHILS 0.7 % (0-2); HEMATOCRIT 39.7 % (42.0-54.0); HEMOGLOBIN 14.6 g/dL (13.5-17.5); IMMATURE GRANULOCYTES 0.3 % (0-5); LYMPHOCYTES 22.5 % (15-50); MCH 29.8 pg (26.0-34.0); MCHC 36.8 g/dL (31.0-37.0); MEAN PLATELET VOLUME 10.5 fL (7.4-10.4); MONOCYTES 6.4 % (2-11); NEUTROPHILS 66.1 % (40-80); PLATELET COUNT 228 10x3/uL (130-400); WBC 8.7 10x3/uL (4.8-10.8)
[2018-12-21 05:20] LABS: ALBUMIN 3.6 g/dL (3.4-5.0); BILIRUBIN - TOTAL 0.39 mg/dL (0.2-1.3); CALCIUM 8.6 mg/dL (8.5-10.1); CARBON DIOXIDE 21.4 mmol/L (21.0-32.0); CREATININE - SERUM 18.3 mg/dL (0.6-1.3); MAGNESIUM - SERUM 2.8 mg/dL (1.8-2.4); POTASSIUM - SERUM 4.4 mmol/L (3.5-5.1); PROTEIN - SERUM 7.5 g/dL (6.4-8.2)
[2018-12-21 05:24] LABS: PHOSPHOROUS 11.3 mg/dL (2.5-4.9)
--- NOTE | 2018-12-21 05:59 | NUR ---
PT RESTING COMFORTABLY DENIES NEEDS
[2018-12-21 07:00] VITALS: BP 128/76
--- NOTE | 2018-12-21 08:50 | NUR ---
Nutrition follow-up: Diet advanced to regular per Dr. Valdivia Pt with ESRD; elevated PO4, glucose Wt: 221# Pt more alert today per nursing +BM, loose Recommend changing diet order to Renal ADA due to labs. RDN following.
[2018-12-21 11:00] VITALS: BP 125/69
[2018-12-21 15:00] VITALS: BP 125/74
[2018-12-21] MEDS ORDERED: FLAGYL500 MG PO (16:21)
[2018-12-21] MEDS ORDERED: LISINOPRIL10 MG PO (18:47)
[2018-12-21 19:00] VITALS: BP 81/51
--- NOTE | 2018-12-21 19:00 | NUR ---
REPORT RECEIVED, CARE ASSUMED. PT IS LAYING IN BED AT THIS TIME WATCHING TV. NO NEEDS VOICED. INITIAL ASSESSMENT COMPLETED, SEE FLOWSHEET FOR DETAILS. DISCHARGE ORDERS RECEIVED IN SYSTEM, PHYSICAN TO PHYSICAN PHONE CALL MADE. WILL CALL REPORT IN ORDER TO TRANSFER PT OUT. NO SIGNS OF ACUTE DISTRESS NOTED AT THIS TIME. WILL CONTINUE TO MONITOR.
[2018-12-21] MEDS ORDERED: BAYER CHEWABLE81 MG PO (19:10)
--- NOTE | 2018-12-21 21:00 | NUR ---
PT IS SITTING UP IN BED WATCHING TV AT THIS TIME. NO NEEDS VOICED, NO SIGNS OF ACUTE DISTRESS. PT REQUESTED TO USE BEDPAN, MODERATE SIZE BM NOTED. WILL CONTINUE TO MONITOR.
[2018-12-21 23:00] VITALS: BP 127/81
--- NOTE | 2018-12-21 23:00 | NUR ---
REPORT CALLED TO RECEIVING FACILITY, GUARD NOTIFIED, TRANSPORT REQUESTED. WAITING FOR TRANSPORT TO ARRIVE. PT IS LAYING IN BED WATCHING TV. NO SIGNS OF ACUTE DISTRESS NOTED. WILL CONTINUE TO MONITOR.
[2018-12-22] VITALS: BP 127/81
--- NOTE | 2018-12-22 00:05 | NUR ---
PT'S TRANSPORT IS HERE TO TAKE PT BACK TO FACILITY. DISCHARGE PAPERWORK SIGNED. PT PREPARED FOR TRANSPORT.
--- NOTE | 2018-12-22 15:33 | MORECARE ---
CASE MANAGEMENT DISCHARGE SUMMARY PATIENT: LUC SINGH UNIT: [id number] ADM DATE: 12/16/18 AGE: 53 : 67 SEX: M ROOM/BED: D.2303 AUTHOR: HAREPR CORMIER PHYSICIAN: REFERRING PHYSICIAN: HOWARD VELEZ MD DATE OF SERVICE: 12/22/18 Discharge Plan Patient Name: LUC SINGH Facility: [facility]:[place] : 1965 Planned Disposition: Anticipated Discharge Date: Discharge Date: 12/22/2018 Expected LOS: Initial Reviewer: [email or web address] Initial Review Date: 12/16/2018 Generated: 12/22/18 4:33 pm Comments DCP- Discharge Planning Updated by [email or web address]: Lidia Shirley on 12/17/18 5:[address] Patient Name: LUC SINGH Admission Status: ER Accout number: [id number] Admission Date: 12-16-2018 : 1965 Admission Diagnosis: Attending: HOWARD VELEZ Current LOS: 1 Anticipated DC Date: Planned Disposition: Primary Insurance: MEDICAID [place] PENDING Discharge Planning Comments: Patient will return to [facility] upon on discharge. CM will continue follow and assist as needed with discharge planning / needs. Treating Plant Pumper: Lidia Shirley Last DP export: 12/17/18 6:02 p Patient Name: LUC SINGH Page 82633 at 1533 All edits/amendments must be made on the electronic document DICTATION DATE: 12/22/18 153 DE ICER FINISHER: ABIMAEL 12/22/18 153 RPT#: [id number] DC DATE:12/22/18 STATUS: DIS IN [facility] [address] [place] [address] END OF REPORT
== END 2018-12-22 00:05 | DRG 91 ==
LOC: D.ER 15:35 → D.ICU 17:43
PROVIDERS: Family Medicine; Internal Medicine Nephrology; ADMIT Internal Medicine Nephrology; ATTEND Internal Medicine Nephrology
PROC: 5A1945Z Respiratory Ventilation, 24-96 Consecutive Hours (ICD-10-PCS; principal; 2018-12-16)
PROC: 0BH17EZ Insertion of Endotracheal Airway into Trachea, Via Natural or Artificial Opening (ICD-10-PCS; 2018-12-16)
DX: G92 Toxic encephalopathy (principal); J96.00 Acute respiratory failure, unspecified whether with hypoxia or hypercapnia; N18.6 End stage renal disease; I63.81 Other cerebral infarction due to occlusion or stenosis of small artery; R40.2312 Coma scale, best motor response, none, at arrival to emergency department; R40.2112 Coma scale, eyes open, never, at arrival to emergency department; R40.2212 Coma scale, best verbal response, none, at arrival to emergency department; I12.0 Hypertensive chronic kidney disease with stage 5 chronic kidney disease or end stage renal disease; E11.22 Type 2 diabetes mellitus with diabetic chronic kidney disease; Z99.2 Dependence on renal dialysis; Z79.4 Long term (current) use of insulin; E66.9 Obesity, unspecified; Z68.32 Body mass index [BMI] 32.0-32.9, adult; E87.5 Hyperkalemia; E78.5 Hyperlipidemia, unspecified

== ENCOUNTER 2019-06-19 15:50 | Inpatient (IN) | payer MEDICAID ==
[~2019-06-19] VITALS: Ht 182.9 cm; Wt 104.8 kg
[2019-06-19] VITALS (7 sets, daily range): BP systolic 117–137; BP diastolic 64–118; BMI 29.9
[~2019-06-19 15:50] MED LIST changes: +BAYER CHEWABLE81 MG PO; +COLACE100 MG PO; +ELIQUIS5 MG PO; +FLAGYL500 MG PO; -HUMULIN R100 U/ML SC; +LISINOPRIL10 MG PO; +NEURONTIN 300300 MG PO; +PHOSLO667 MG PO; -PRAVACHOL20 MG; +PRAVACHOL20 MG PO
[2019-06-19 16:52] LABS: APPEARANCE CLOUDY (CLEAR); COLOR YELLOW (YELLOW); GLUCOSE 50 mg/dL (NEGATIVE); KETONE NEGATIVE (NEGATIVE); NITRITE NEGATIVE (NEGATIVE); PROTEIN 2+ mg/dL (NEGATIVE); UROBILINOGEN NORMAL (NORMAL)
[2019-06-19 16:53] LABS: BILIRUBIN NEGATIVE (NEGATIVE)
[2019-06-19 16:56] LABS: RED CELLS - URINE 0-5 /hpf (0-5)
[2019-06-19 16:57] LABS: BACTERIA MODERATE /hpf (NEGATIVE); EPITHELIAL CELLS NSEEN /hpf (0-5); SPERMATOZOA 25-50 /hpf (NONE SEEN)
[2019-06-19 17:08] LABS: BASOPHILS 0.2 % (0-2); EOSINOPHILS 0.3 % (0-7); HEMATOCRIT 35.2 % (42.0-54.0); HEMOGLOBIN 12.3 g/dL (13.5-17.5); IMMATURE GRANULOCYTES 0.3 % (0-5); LYMPHOCYTES 7.9 % (15-50); MCH 30.9 pg (26.0-34.0); MCHC 34.9 g/dL (31.0-37.0); MCV 88.4 fL (80.0-100.0); MEAN PLATELET VOLUME 10.1 fL (7.4-10.4); MONOCYTES 6.1 % (2-11); NEUTROPHILS 85.2 % (40-80); RBC 3.98 10x6/uL (4.20-6.10); RDW 14.6 % (11.5-14.5); WBC 11.9 10x3/uL (4.8-10.8)
[2019-06-19 17:12] LABS: PLATELET COUNT 135 10x3/uL (130-400)
[2019-06-19 17:33] LABS: ALBUMIN 3.3 g/dL (3.4-5.0); ALKALINE PHOSPHATASE 82 U/L (46-116); ALT (SGPT) 29 U/L (10-68); BILIRUBIN - TOTAL 0.56 mg/dL (0.2-1.3); CALC OSMOLALITY 292 mosm/kg (275-300); CALCIUM 8.7 mg/dL (8.5-10.1); CARBON DIOXIDE 23.7 mmol/L (21.0-32.0); CHLORIDE - SERUM 100 mmol/L (98-107); CKMB 0.9 U/L (0.0-3.6); CREATINE KINASE 481 UL (21-232); CREATININE - SERUM 17.2 mg/dL (0.6-1.3); GLUCOSE 123 mg/dL (74-106); PROTEIN - SERUM 7.9 g/dL (6.4-8.2); SODIUM 135 mmol/L (136-145); TROPONIN-I 0.032 ng/mL (0.000-0.060); UREA NITROGEN 75 mg/dL (7-18); eGFR NON AFRICAN AMERICAN 3 mL/min (90-120)
[2019-06-19 17:34] LABS: POTASSIUM - SERUM 7.1 mmol/L (3.5-5.1)
[2019-06-19 17:36] LABS: APTT 36.9 SECONDS (22.8-39.4); INR 1.18 (0.85-1.17); PROTIME 14.5 SECONDS (11.6-15.0)
--- NOTE | 2019-06-19 19:00 | NUR ---
PT RESTING ON BED. PT DRINKING WATER AT THIS TIME. GUARDS PRESENT AT BEDSIDE.
--- NOTE | 2019-06-19 19:49 | NUR ---
ZOSYN INFUSION STARTED AT THIS TIME. PT RESTING ON BED. GUARDS AT BEDSIDE.
--- NOTE | 2019-06-19 20:20 | NUR ---
ZOSYN INFUSION COMPLETE. VANCOMYCIN STARTED AT THIS TIME.
--- NOTE | 2019-06-19 20:23 | NUR ---
PT RESTING ON BED. PT WAKES TO VERBAL STIMULI. PT UPDATED ON PLAN OF CARE. GUARDS AT PT BEDSIDE.
--- NOTE | 2019-06-19 21:21 | NUR ---
VANCOMYCIN INFUSION COMPLETE
--- NOTE | 2019-06-19 21:30 | NUR ---
PT ARRIVED ON UNIT VIA STRETCHER, HOOKED TO MONITORS, ASSESSMENT COMPLETE, PT IS ALERT AND ORIENTED, ON 3L NC WITH 97% O2 SAT. ALL PPP, HD NURSE AT BEDSIDE, GUARD AT BEDSIDE,
[2019-06-19] MEDS ORDERED: MORPHINE S10 MG/5 ML IV (22:00)
[2019-06-19] MEDS ORDERED: ULTRAM50 MG PO (22:00)
[2019-06-19] MEDS ORDERED: HUMULIN 70100 UNIT/1 SC (22:01)
[2019-06-19] MEDS ORDERED: NEPHRO-VITE RX1 TAB PO (22:01)
[2019-06-19] MEDS ORDERED: LISINOPRIL5 MG PO (22:02)
[2019-06-19] MEDS ORDERED: HUMULIN N100 U/ML SC (22:02)
--- NOTE | 2019-06-19 23:22 | NUR ---
REASSESSMENT COMPLETE, NO CHANGES NOTED, HS STILL IN PROGRESS,
[2019-06-20] VITALS (11 sets, daily range): BP systolic 80–165; BP diastolic 44–81
--- NOTE | 2019-06-20 01:05 | NUR ---
PT RESTING AT THIS TIME, VSS, CALL LIGHT IN REACH
--- NOTE | 2019-06-20 03:25 | NUR ---
REASSESSMENT COMPLETE, NO CHANGES NOTED,
[2019-06-20 03:45] LABS: BASOPHILS 0.1 % (0-2); EOSINOPHILS 0.2 % (0-7); HEMATOCRIT 32.4 % (42.0-54.0); HEMOGLOBIN 11.3 g/dL (13.5-17.5); IMMATURE GRANULOCYTES 0.4 % (0-5); LYMPHOCYTES 6.6 % (15-50); MCH 30.8 pg (26.0-34.0); MCHC 34.9 g/dL (31.0-37.0); MCV 88.3 fL (80.0-100.0); MEAN PLATELET VOLUME 10.9 fL (7.4-10.4); MONOCYTES 8.4 % (2-11); NEUTROPHILS 84.3 % (40-80); PLATELET COUNT 134 10x3/uL (130-400); RBC 3.67 10x6/uL (4.20-6.10); RDW 14.6 % (11.5-14.5); WBC 11.3 10x3/uL (4.8-10.8)
[2019-06-20 03:54] LABS: INR 1.11 (0.85-1.17); PROTIME 13.8 SECONDS (11.6-15.0)
[2019-06-20 04:18] LABS: ANION GAP 23.2 mmol/L (8-16); CALCIUM 8.9 mg/dL (8.5-10.1); CARBON DIOXIDE 20.5 mmol/L (21.0-32.0); PHOSPHOROUS 4.4 mg/dL (2.5-4.9); VANCOMYCIN - RANDOM 22.7 ug/mL (10.0-20.0)
[2019-06-20 04:23] LABS: CREATININE - SERUM 12.6 mg/dL (0.6-1.3)
[2019-06-20 04:24] LABS: POTASSIUM - SERUM 5.7 mmol/L (3.5-5.1)
--- NOTE | 2019-06-20 05:00 | NUR ---
NO NEEDS NOTED AT THIS TIME,
--- NOTE | 2019-06-20 09:41 | NUR ---
SURGERY CONSULT DCD PER RENAL SINCE PT HAS A TRIALYSIS LINE TO BE DCD INSTEAD OF A HEMOSPLIT. ORDER RECIEVED FOR NURSING STAFF TO DC TRIALYSIS LINE.
--- NOTE | 2019-06-20 10:50 | NUR ---
BY TO SEE PT GAVE ORDERS TO REMOVE TRIALYSIS CATH. REMOVED CATH DIRECT PRESSURE HELD. NO SIGNS OF BLEEDING. WILL CONTINUE TO MONITOR.
--- NOTE | 2019-06-20 18:21 | NUR ---
PT RECEIVED TO ROOM VIA WHEELCHAIR, GUARD AT BEDSIDE. IV TO RIGHT FOREARM NOTED, IV ANTIBIOTIC STARTED FOR INFUSION. PT WAS MEDICATED PAIN FOR PAIN PRIOR TO TRANSFER, SLEEPING BUT EASILY AROUSES TO VOICE OR TOUCH. DINNER TRAY BROUGHT WITH HIM.
--- NOTE | 2019-06-20 22:33 | NUR ---
INITIAL ROUNDS COMPLETED AT 1910 HRS. PT LETHARGIC; OPENS EYES TO VERBAL STIMULI, FOLLOWS COMMANDS THEN QUICKLY FALLS BACK TO SLEEP. ASSESSMENT COMPLTED AT 2015 HRS. FSBS 189. 2 UNITS HUMALOG GIVEN SUB-Q TO R ABD. IV TO RFA SL. LFA AVF WITH GOOD BRUIT AND THRILL. LUNGS DIMINISHED IN BASES BILAT. PT MORE ALERT DURING MED PASS. SWALLOWED PM MEDS WITHOUT DIFFICULTY. PT CURRENTLY RESTING WITH EYES CLOSED. RESP EVEN AND REGULAR. SR UP X2, CALL LIGHT WITHIN REACH.
--- NOTE | 2019-06-21 00:36 | NUR ---
FSBS 204. 4 UNITS HUMALOG GIVEN SUB-Q TO R ABD. LEMON-TELLER SODA GIVEN PER REQUEST. CALL LIGHT WITHIN REACH.
--- NOTE | 2019-06-21 02:24 | NUR ---
PT RESTING WITH EYES CLOSED. RESP EVEN AND REGULAR. SR UP X2, CALL LIGHT WITHIN REACH.
--- NOTE | 2019-06-21 03:15 | NUR ---
BUPRENEX 0.15MG SIVP GIVEN FOR C/O BACK PAIN. CALL LIGHT WITHIN REACH.
--- NOTE | 2019-06-21 04:45 | NUR ---
FSBS 168. 2 UNITS HUMALOG GIVEN SUB-Q TO L ABD. PT STATES PAIN TOLERABLE AT THIS TIME. CALL LIGHT WITHIN REACH.
--- NOTE | 2019-06-21 06:35 | NUR ---
VSS THROUGHOUT NIGHT. PT STATES BUPRENEX CONTROLLED PAIN. NEEDS MET; WILL CONTINUE TO MONITOR.
[2019-06-21 06:40] LABS: ANION GAP 22.1 mmol/L (8-16); CALCIUM 8.6 mg/dL (8.5-10.1); CARBON DIOXIDE 23.8 mmol/L (21.0-32.0); PHOSPHOROUS 6.1 mg/dL (2.5-4.9); POTASSIUM - SERUM 4.9 mmol/L (3.5-5.1)
[2019-06-21 06:45] LABS: BASOPHILS 0.2 % (0-2); EOSINOPHILS 2.7 % (0-7); HEMATOCRIT 29.9 % (42.0-54.0); HEMOGLOBIN 10.6 g/dL (13.5-17.5); IMMATURE GRANULOCYTES 0.5 % (0-5); MCH 30.8 pg (26.0-34.0); MCHC 35.5 g/dL (31.0-37.0); MCV 86.9 fL (80.0-100.0); MEAN PLATELET VOLUME 10.5 fL (7.4-10.4); MONOCYTES 13.3 % (2-11); NEUTROPHILS 69.3 % (40-80); PLATELET COUNT 141 10x3/uL (130-400); RBC 3.44 10x6/uL (4.20-6.10); RDW 14.5 % (11.5-14.5)
--- NOTE | 2019-06-21 07:23 | NUR ---
PT RESTING. RR EVEN AND UNLBAORED. DENIES NEEDS OR PAIN AT THIS TIME. GUARD AT BEDSIDE. RIGHT FOREARM IV NOTED, SL. BED IN LOWEST POSITION. CALL LIGHT WITHIN REACH. WILL CONTINUE TO MONITOR.
--- NOTE | 2019-06-21 09:40 | NUR ---
PT TO DIALYSIS. MAYLIN SCANNED IN AND SENT WITH PT TO DIALYSIS. NURSE IS AWARE.
[2019-06-21 09:59] VITALS: BP 151/76
--- NOTE | 2019-06-21 17:57 | NUR ---
I have reviewed this patient and I concur with the Shift Assessment completed by the Licensed Practical Nurse today this shift.
[2019-06-21 18:26] VITALS: BP 137/66
--- NOTE | 2019-06-21 19:33 | NUR ---
EVENING ROUNDS COMPLETE. PT LAYING IN BED. AAOX4. GAURD AT BEDSIDE. NO SIGNS OF DISTRESS. PT DENIES ANY PAIN OR NEEDS AT THIS TIME. CL IN REACH, BED IN LOWEST POSITION.
[2019-06-21 20:37] VITALS: BP 138/62
[2019-06-22 00:30] VITALS: BP 145/56
[2019-06-22 04:32] VITALS: BP 126/59
[2019-06-22 06:02] LABS: BASOPHILS 0.2 % (0-2); EOSINOPHILS 2.2 % (0-7); HEMATOCRIT 29.9 % (42.0-54.0); HEMOGLOBIN 10.5 g/dL (13.5-17.5); IMMATURE GRANULOCYTES 0.6 % (0-5); LYMPHOCYTES 14.7 % (15-50); MCH 30.6 pg (26.0-34.0); MCHC 35.1 g/dL (31.0-37.0); MCV 87.2 fL (80.0-100.0); MEAN PLATELET VOLUME 10.9 fL (7.4-10.4); MONOCYTES 9.1 % (2-11); NEUTROPHILS 73.2 % (40-80); PLATELET COUNT 159 10x3/uL (130-400); RBC 3.43 10x6/uL (4.20-6.10); RDW 14.4 % (11.5-14.5); WBC 10.3 10x3/uL (4.8-10.8)
[2019-06-22 06:21] LABS: ANION GAP 21.9 mmol/L (8-16); CALCIUM 8.6 mg/dL (8.5-10.1); CARBON DIOXIDE 23.9 mmol/L (21.0-32.0); CREATININE - SERUM 14.4 mg/dL (0.6-1.3); PHOSPHOROUS 6.5 mg/dL (2.5-4.9); POTASSIUM - SERUM 4.8 mmol/L (3.5-5.1); VANCOMYCIN - RANDOM 19.2 ug/mL (10.0-20.0)
[2019-06-22] MEDS ORDERED: VANCOMYCIN 1 GM/1 G1 IV (06:44)
[2019-06-22] MEDS ORDERED: FLAGYL500 MG PO (06:45)
[2019-06-22] MEDS ORDERED: ELIQUIS5 MG PO (06:46)
--- NOTE | 2019-06-22 07:49 | NUR ---
PT RESTING, RR EVEN AND UNLABORED. GUARD AT BEDSIDE. IV NOTED TO RIGHT FOREARM, SL. BED IN LOWEST POSITION. CALL LIGHT WITHIN REACH. WILL CONTINUE TO MONITOR.
[2019-06-22 08:16] VITALS: BP 167/67
--- NOTE | 2019-06-22 12:10 | NUR ---
PT TO SHOWER, STEADY GAIT, HOWEVER PT WAS COMPLAINING OF BACK PAIN AND COULD BARELY PUT PRESSURE ON LEFT SIDE BY THE TIME WE REACHED THE SHOWER. PT PLACED ON SHOWER CHAIR AND CONTINUED WITH SHOWER. LINENS WERE CHANGED. PHYSICAL THERAPY CALLED TO ASSIST. PT ASSISTED BACK TO BED WITH X3 ASSIST AND WALKER. WILL KEEP ON BEDREST FOR THE MOMENT. WILL CONTINUE TO MONITOR.
[2019-06-22 12:11] VITALS: BP 122/44
--- NOTE | 2019-06-22 13:54 | NUR ---
I have reviewed this patient and I concur with the Shift Assessment completed by the Licensed Practical Nurse today this shift.
[2019-06-22 15:09] LABS: HEPATITIS C ANTIBODY <0.1 S/CO RAT (0.0-0.9)
[2019-06-22 15:47] VITALS: BP 138/71
--- NOTE | 2019-06-22 19:32 | NUR ---
RECEIVED UP IN BED WITH EYES OPEN AND TV ON. ALERT AND ORIENTED X4. GAURD AT BEDSIDE. DSG TO LEFT CHEST CDI. TELEMETRY IN PLACE. LEFT ARM RESERVED D/T AVF. GOOD BRUIT AND TRILL. DENIES ANY NEEDS AT THIS TIME.
[2019-06-22 20:00] VITALS: BP 143/75
[2019-06-23] VITALS: BP 137/68
[2019-06-23 04:00] VITALS: BP 131/68
[2019-06-23 07:20] LABS: BASOPHILS 0.3 % (0-2); HEMATOCRIT 30.6 % (42.0-54.0); HEMOGLOBIN 10.9 g/dL (13.5-17.5); IMMATURE GRANULOCYTES 0.5 % (0-5); LYMPHOCYTES 15.6 % (15-50); MCH 30.7 pg (26.0-34.0); MCHC 35.6 g/dL (31.0-37.0); MCV 86.2 fL (80.0-100.0); MEAN PLATELET VOLUME 10.5 fL (7.4-10.4); MONOCYTES 6.1 % (2-11); NEUTROPHILS 73.5 % (40-80); PLATELET COUNT 189 10x3/uL (130-400); RBC 3.55 10x6/uL (4.20-6.10); RDW 14.2 % (11.5-14.5); WBC 10.9 10x3/uL (4.8-10.8)
[2019-06-23 07:27] LABS: ANION GAP 21.5 mmol/L (8-16); CALCIUM 8.9 mg/dL (8.5-10.1); CARBON DIOXIDE 23.3 mmol/L (21.0-32.0); CREATININE - SERUM 17.1 mg/dL (0.6-1.3); PHOSPHOROUS 7.9 mg/dL (2.5-4.9); POTASSIUM - SERUM 4.8 mmol/L (3.5-5.1)
--- NOTE | 2019-06-23 07:53 | NUR ---
REPORT RECEIVED. WILL CONTINUE WITH POC. PT CURRENTLY LYING SEMI FOWLERS. CALL LIGHT W/I REACH. GUARD AT BEDSIDE. RR EVEN AND UNLABORED ON 2L 02. R.FOR PIV IS SALINE LOCKED. NO S/S OF DISTRESS NOTED. PT DENIES ANY NEEDS. WILL CTM.
[2019-06-23 08:42] VITALS: BP 141/71
[2019-06-23 14:05] VITALS: BP 138/70
--- NOTE | 2019-06-23 14:40 | NUR ---
RECEIVED VERBAL ORDERS TO ADMININSTER ANCEF AFTER DIALYSIS. WILL CTM.
[2019-06-23 15:50] LABS: ERYTHROCYTE SEDIMENTATION RATE 30 mm/hr (0-20)
--- NOTE | 2019-06-23 16:05 | NUR ---
I have reviewed this patient and I concur with the Shift Assessment completed by the Licensed Practical Nurse today this shift.
[2019-06-23 16:20] VITALS: BP 138/73
--- NOTE | 2019-06-23 18:27 | NUR ---
PT REFUSES DIALYSIS TODAY. BEGAN INFUSION OF ABX VIA R.FOR PIV. WILL CTM.
--- NOTE | 2019-06-23 19:09 | NUR ---
REFUSED TREATMENT, EDUCATED PATIENT AND STILL REFUSED. WILL ADD TO TOMORROWS SCHEDULE
--- NOTE | 2019-06-23 19:35 | NUR ---
REPORT RECIEVED AND ROUNDING COMPLETE. PATIENT LAYING IN BED WITH GUARD AT BEDSIDE. VALENTINA HAS A RIGHT FOREARM THAT IS SALIN LOCKED PRN PATIENT'S REQUEST. PATIENT STATES HE DOES NOT NEED O2 AT THIS TIME. PATIENT STATES HE HAS NO NEEDS AT THIS TIME. CALL LIGHT WITHIN REACH AND BED IN LOWEST LOCKED POSITION.
[2019-06-23 20:00] VITALS: BP 158/84
[2019-06-24] VITALS: BP 130/66
--- NOTE | 2019-06-24 03:07 | NUR ---
I have reviewed this patient and I concur with the Shift Assessment completed by the Licensed Practical Nurse today this shift.
[2019-06-24 04:00] VITALS: BP 130/66
[2019-06-24 05:40] LABS: BASOPHILS 0.2 % (0-2); EOSINOPHILS 4.5 % (0-7); HEMOGLOBIN 10.3 g/dL (13.5-17.5); IMMATURE GRANULOCYTES 0.6 % (0-5); LYMPHOCYTES 17.5 % (15-50); MCH 30.7 pg (26.0-34.0); MCHC 35.5 g/dL (31.0-37.0); MCV 86.6 fL (80.0-100.0); MEAN PLATELET VOLUME 10.2 fL (7.4-10.4); MONOCYTES 4.7 % (2-11); NEUTROPHILS 72.5 % (40-80); RBC 3.35 10x6/uL (4.20-6.10)
[2019-06-24 05:42] LABS: PLATELET COUNT 245 10x3/uL (130-400)
[2019-06-24 06:11] LABS: ANION GAP 23.1 mmol/L (8-16); CALCIUM 8.7 mg/dL (8.5-10.1); CARBON DIOXIDE 23.1 mmol/L (21.0-32.0); CREATININE - SERUM 19.2 mg/dL (0.6-1.3); POTASSIUM - SERUM 5.2 mmol/L (3.5-5.1); VANCOMYCIN - RANDOM 25.1 ug/mL (10.0-20.0)
[2019-06-24 06:13] LABS: PHOSPHOROUS 9.6 mg/dL (2.5-4.9)
--- NOTE | 2019-06-24 07:20 | NUR ---
ASSESSMENT DONE. DENIES NEEDS
[2019-06-24 10:29] VITALS: BP 163/79
[2019-06-24] MEDS ORDERED: ANCEF 1 GM/D5W 51 G1 IV (11:35)
[2019-06-24 14:47] VITALS: Ht 182.9 cm; Wt 104.8 kg
--- NOTE | 2019-06-24 16:08 | MORECARE ---
CASE MANAGEMENT DISCHARGE SUMMARY PATIENT: LUC SINGH UNIT: [id number] ADM DATE: 06/19/19 AGE: 54 : 67 SEX: M ROOM/BED: D.8076 AUTHOR: HARPER CORMIER PHYSICIAN: REFERRING PHYSICIAN: KAVYA CALABRESE MD DATE OF SERVICE: 06/24/19 Discharge Plan Patient Name: [facility]UC [facility]INGH [facility] [facility] 1965 Planned Disposition: Other Type of Facility Anticipated Discharge Date: 06/24/19 Discharge Date: Expected LOS: 5 Initial Reviewer: [email or web address] Initial Review Date: 06/24/2019 Generated: 06/24/19 5:07 pm Patient Name: LUC SINGH Page 36857 at 1608 All edits/amendments must be made on the electronic document DICTATION DATE: 06/24/191606 CENTRAL SUPPLY MANAGER: ABIMAEL 06/24/191606 RPT#: [id number] DC DATE: STATUS: ADM IN [facility] [address] [place] [address] END OF REPORT
--- NOTE | 2019-06-24 16:17 | MORECARE ---
CASE MANAGEMENT DISCHARGE SUMMARY PATIENT: LUC SINGH UNIT: [id number] ADM DATE: 06/19/19 AGE: 54 : 67 SEX: M ROOM/BED: D.4759 AUTHOR: HARPER CORMIER PHYSICIAN: REFERRING PHYSICIAN: KAVYA DALE MD DATE OF SERVICE: 06/24/19 Discharge Plan Patient Name: LUC SINGH [facility] [facility] 1965 Planned Disposition: Other Type of Facility Anticipated Discharge Date: 06/24/19 Discharge Date: Expected LOS: 5 Initial Reviewer: [email or web address] Initial Review Date: 06/24/2019 Generated: 06/24/19 5:17 pm Comments DCP- Discharge Planning Updated by [email or web address]: Jordan Bullock on 06/24/19 3:[address] Patient Name: LUC SINGH Admission Status: ER Accout number: [id number] Admission Date: 06-19-2019 : 1965 Admission Diagnosis: Attending: Kavya Dale Current LOS: 5 Anticipated DC Date: 06-24-2019 Planned Disposition: Other Type of Facility Primary Insurance: MEDICAID [facility] PENDING PREFERRED EXTERNAL PROVIDER: [facility] Discharge Planning Comments: CM SPOKE TO DONNA WARD WHO INFORMED CM THAT DOC TO DOC HAS BEEN DONE WITH UNIT AND PT HAS BEEN DISCHARGED. CM ATTEMPTED TO SEE PT IN ROOM AT 0920, 0955, 1240, 1510 HOURS, PT NOT IN ROOM, CM ADVISED BY NURSE THAT PT IN DIALYSIS. AT ABOUT 1605 HOURS, CM MET WITH PT AND GUARD IN ROOM, DISCUSSED DISCHARGE TODAY. PT LIVES IN [facility]IT WITH [facility]. PT STATES THEY DID NOT FIND ANYTHING WRONG WITH HIS BACK AND WITH THAT, HE WILL GO BACK TO "THE UNIT" AND THEY CAN SEND HIM TO [facility] LATER. GUARD IN ROOM TO ARRANGE TRANSPORTATION. Extruder Operator Horizontal: Jordan Bullock DCPIA - Discharge Planning Initial Assessment Updated by [email or web address]: Jordan Bullock on 06/24/19 4:11 pm * Is the patient Alert and Oriented? Yes * How many steps to enter\\exit or inside your home? NONE * [facility] * Pharmacy [facility] * Preadmission Environment Other * Other Environment [facility] * Facility Name [facility] * ADLs Partial Dependent * Partial ADLs (Assistance needed) Medication Management * Equipment Other * Other Equipment ALL MEDICAL EQUIPMENT PROVIDED BY [facility]IVING UNIT * List name and contact numbers for known caregivers / representatives who currently or will assist patient after discharge: [facility] * Verbal permission to speak to the caregivers and representatives has been obtained from the patient. N/A * Community resources currently utilized None * Additional services required to return to the preadmission environment? No * Can the patient safely return to the preadmission environment? Yes * Has this patient been hospitalized within the prior 30 days at any hospital? No Patient Name: LUC SINGH Page 98428 at 1617 All edits/amendments must be made on the electronic document DICTATION DATE: 06/24/191616 ROVING MARKER: ABIMAEL 06/24/191616 RPT#: [id number] DC DATE: STATUS: ADM IN [facility] [address] [place] [address] END OF REPORT
--- NOTE | 2019-06-24 18:26 | NUR ---
I have reviewed this patient and I concur with the Shift Assessment completed by the Licensed Practical Nurse today this shift.
--- NOTE | 2019-06-24 20:56 | NUR ---
SECURITY CHUA ARRIVED WITH A WHEELCHAIR TO PICK TRANSPORT PT OUT OF THE FACILITY. PT LUCIA'Franca.
== END 2019-06-24 20:57 | DRG 314 ==
LOC: D.ER 15:50 → D.ICU 19:02 → D.M2 19:02
PROVIDERS: Family Medicine; Internal Medicine Nephrology; ADMIT Internal Medicine Nephrology; ATTEND Internal Medicine Nephrology
PROC: 5A1D70Z Performance of Urinary Filtration, Intermittent, Less than 6 Hours Per Day (ICD-10-PCS; principal; 2019-06-19)
DX: T82.7XXA Infection and inflammatory reaction due to other cardiac and vascular devices, implants and grafts, initial encounter (principal); N18.6 End stage renal disease; I12.0 Hypertensive chronic kidney disease with stage 5 chronic kidney disease or end stage renal disease; N39.0 Urinary tract infection, site not specified; E11.22 Type 2 diabetes mellitus with diabetic chronic kidney disease; Z99.2 Dependence on renal dialysis; E87.5 Hyperkalemia; N40.0 Benign prostatic hyperplasia without lower urinary tract symptoms; D63.1 Anemia in chronic kidney disease

== ENCOUNTER 2020-11-22 08:51 | Day surgery (SDC) | payer OTHER ==
[~2020-11-22] VITALS: Ht 177.8 cm; Wt 102.3 kg
--- NOTE | ~2020-11-22 | HP ---
PATIENT: LUC SINGH MEDICAL RECORD: [id number] ACCOUNT: [id number] LOCATION:[place] : [birth year] ADMISSION DATE: 11/22/20 PCP: ZAKI ALCANTARA MD HISTORY AND PHYSICAL EXAMINATION CHIEF COMPLAINT: Fecal occult blood positivity. HISTORY OF PRESENT ILLNESS: The patient was found to have one out of three cards that were positive for occult blood. Due to the fact that he is ASA IV secondary to end-stage renal disease, the patient needs to have his colonoscopy in the hospital. PAST MEDICAL AND SURGICAL HISTORY: Insulin-dependent diabetes mellitus, gout, gastroesophageal reflux, history of leg surgery, history of back surgery, hypertension, congestive heart failure. ALLERGIES: NAPROXEN. SOCIAL HISTORY: Former smoker. HOME MEDICINES: Include Eliquis. He is not taking Eliquis since . Today is Friday. REVIEW OF SYSTEMS: Negative for angina or myocardial infarction. PHYSICAL EXAMINATION: GENERAL: The patient does not appear acutely ill. He does not appear chronically ill. VITAL SIGNS: Reviewed. EARS: External ears appear normal. EYES: Extraocular movements are intact. NECK: Trachea is midline. CHEST: No intercostal retractions. PULMONARY: Nonlabored. No stridor. IMPRESSION: Fecal occult blood positivity. PLAN: Plan will be colonoscopy. TRANSINT:[id number] Voice Confirmation ID: [id number] DOCUMENT ID: [id number] LOLITA BARGER MD CC: ZAKI ALCANTARA MD [id number] DICTATION DATE: 11/22/20 1329 BROADCAST CORRESPONDENT: 11/22/20 [id number] [place] [address]
--- NOTE | ~2020-11-22 | OP ---
PATIENT NAME: LUC SINGH MEDICAL RECORD: [id number] :[birth year] LOCATION:D.OPS ADMISSION DATE: SURGEON: LOLITA BARGER MD DATE OF OPERATION: 11/22/2020 PREOPERATIVE DIAGNOSIS: Fecal occult blood positivity. POSTOPERATIVE DIAGNOSIS: Fecal occult blood positivity with 2 colon polyps that do not account for the patient's fecal occult blood positivity. PROCEDURE: 1. Total colonoscopy to cecum. 2. Hot biopsy forceps polypectomies x2. SURGEON: Lolita Barger MD NEURODIAGNOSTIC TECHNICIAN: None. BLOOD LOSS: Minimal. ANESTHESIA: IV sedation. COMPLICATIONS: None. The risks, possible complications, and alternatives of the procedure were explained to the patient. He elects to proceed. ENDOSCOPIC COURSE: The patient was conveyed to the endoscopy suite electively on 11/22/2020. IV sedation was induced by the anesthesia staff. The patient was placed in the [place] position. A digital rectal examination was performed. A colonoscope was inserted through the anus. It was easily advanced to the cecum. The prep was adequate. I slowly withdrew the endoscope. I irrigated and aspirated extensively. I utilized not only direct imaging, but also narrow band imaging. Two polyps were noted. One was a 5 mm polyp and the other one was a 1.1 cm polyp. These were both removed in their entirety utilizing hot biopsy forceps polypectomy technique. I dragged the folds. The pullback was greater than a 16-minute pullback. A retroflexed view was obtained in the rectum. I then unretroflexed the scope and removed it under direct vision. The patient can be conveyed back to the intermediate. There is no need for the patient to follow up with me in the office unless he develops a complication related to this operative procedure. If either one of these polyps is adenomatous, then he will require a repeat colonoscopy for surveillance in 1 year, which would be October of 2021. The polyps did not appear to have bled and did not account for the patient's fecal occult blood positive. For that reason, I would recommend an EGD. Due to his multiple medical problems this EGD should be done at the hospital. TRANSINT:[id number] Voice Confirmation ID: [id number] DOCUMENT ID: [id number] OPERATIVE REPORT [id number] FRANCISCOLUC LOLITA BARGER MD CC: ZAKI ALCANTARA MD [id number] DICTATION DATE: 11/22/20 1658 ENTERPRISE INTEGRATION DEVELOPER: 11/23/20 0120 [facility] 11/22/20 [address] [id number]
[~2020-11-22 08:51] MED LIST changes: +ANCEF 1 GM/D5W 51 G1 IV; +HUMULIN N100 U/ML SC; +LISINOPRIL5 MG PO; +MORPHINE S10 MG/5 ML IV; +NEPHRO-VITE RX1 TAB PO; +ULTRAM50 MG PO; +VANCOMYCIN 1 GM/1 G1 IV
[2020-11-22] MEDS ORDERED: ACETAMINOPHEN325 MG (09:17)
[2020-11-22 09:53] LABS: BASOPHILS 0.9 % (0-2); HEMATOCRIT 36.6 % (42.0-54.0); HEMOGLOBIN 12.2 g/dL (13.5-17.5); LYMPHOCYTES 21.6 % (15-50); MCH 30.1 pg (26.0-34.0); MCHC 33.4 g/dL (31.0-37.0); MCV 90.2 fL (80.0-100.0); NEUTROPHILS 65.5 % (40-80); RBC 4.06 10x6/uL (4.20-6.10); RDW 17.7 % (11.5-14.5); WBC 6.6 10x3/uL (4.8-10.8)
[2020-11-22 09:56] VITALS: Ht 177.8 cm; Wt 102.3 kg
[2020-11-22 10:10] LABS: ANION GAP 16.9 mmol/L (8-16); CALCIUM 9.6 mg/dL (8.5-10.1); CARBON DIOXIDE 24.7 mmol/L (21.0-32.0); CREATININE - SERUM 11.4 mg/dL (0.6-1.3); POTASSIUM - SERUM 4.6 mmol/L (3.5-5.1)
[2020-11-22 10:12] LABS: PLATELET COUNT 173 10x3/uL (130-400)
[2020-11-22 10:13] LABS: APTT 34.1 SECONDS (22.8-39.4); INR 1.17 (0.85-1.17); PROTIME 13.8 SECONDS (11.6-15.0)
--- NOTE | 2020-11-22 15:31 | NUR ---
1455 DR. DENITA ROMERO, GIVES RESULTS.
== END 2020-11-22 15:15 ==
LOC: D.OPS 08:51
PROVIDERS: Anesthesiology; ATTEND Surgery
DX: R19.5 Other fecal abnormalities (principal); K63.5 Polyp of colon; N18.6 End stage renal disease; E11.9 Type 2 diabetes mellitus without complications; Z79.4 Long term (current) use of insulin; K21.9 Gastro-esophageal reflux disease without esophagitis; I50.9 Heart failure, unspecified